=== PATIENT | female | born 1970 | race Caucasian/White ===

== ENCOUNTER → 2018-01-17 | Day surgery (SDC) | payer OTHER ==
[~2018-01-17] MED LIST: BUPIVACAINE HCL 0.5% INJ 30 ML VIAL INJ ONE; CEFAZOLIN SOD 2 GM/D5W 50ML 50 ML IV ONE; DEXAMETHASONE SOD PHOS INJ 4 MG/ML VIAL ONE; FENTANYL CITRATE/PF 100MCG/2 ML INJ ONE; LEVOTHYROXINE112 MCG PO; LIDOCAINE HCL 2% LOCAL INJ 5 ML SDV VIAL INJ ONE; METFORMIN HCL500 M2 PO; MIDAZOLAM HCL 2 MG/2 ML VIAL ONE; NEOSTIGMINE 1 MG/ML 10ML VIAL ONE; ONDANSETRON HCL INJ 2 MG/ML VIAL ONE; PROPOFOL IV EMULSION 10 MG/ML 20 ML VIAL ONE; SEVOFLURANE INHAL SOLN 250 ML PEN BTL ONE; [UNRECOGNIZED DRUG - OTHER] PO
--- NOTE | 2018-01-17 15:23 | Operative Report ---
DATE OF PROCEDURE: January 17, 2018 PREOPERATIVE DIAGNOSES 1. Chronic plantar fasciitis. 2. Bone spur, right foot. 3. Bursitis with chronic edema, right foot. POSTOPERATIVE DIAGNOSES 1. Chronic plantar fasciitis. 2. Bone spur, right foot. 3. Bursitis with chronic edema, right foot. PROCEDURES 1. Endoscopic plantar fasciotomy, right foot. 2. Removal of bone spur, right calcaneus. 3. Use of human allograft. 4. Application of posterior splint. PATHOLOGY: None. ANESTHESIA: General anesthetic. HEMOSTASIS: Pneumatic thigh tourniquet. ESTIMATED BLOOD LOSS: Less than 10 mL. MATERIALS: A 2 x 3 AmnioFix patch, expires 10/27/2021, . PROCEDURE IN DETAIL: Under mild sedation, the patient was brought to the operating room and placed on the operating table in the supine position. Following IV sedation, anesthesia was obtained with a general anesthetic. At this point, the foot was scrubbed, prepped and draped in the usual aseptic manner. The pneumatic thigh tourniquet was inflated to 350 mmHg, and the leg was lowered to the table. Attention was then directed to the medial aspect of the right foot, where a linear incision was made overlying the plantar fascia. The incision was deepened via sharp and blunt dissection, taking care to retract or cauterize neurovascular structures as necessary. It was deepened down to the level of the plantar fascia. A fascial isolator was then used. A trocar and cannula were then inserted. The trocar was removed. The camera was inserted. Medial, central and lateral bands were visualized. Utilizing a fascial blade, medial and central bands were transected through and through, leaving the lateral band intact. All instruments were removed. The area was then flushed with copious amounts of normal sterile saline solution. Excision of plantar calcaneal spur: Attention was then directed to the plantar aspect of the foot. With the use of intraop fluoroscopy, the bone spur was then isolated. Utilizing a combination of bone rongeurs and a hand rasp, the spur was removed. The area was then made smooth. The area was then flushed with copious amount of normal sterile saline solution. At this point, human allograft was then inserted into the area in order to promote adhesions, to promote healing and to prevent scar tissue. The area was then closed, closing the deepest layer with 4-0 nylon. A clean dressing was applied consisting of Adaptic, 4 x 4's, Kerlix and Webril. A posterior splint was applied and was secured using an Harshal bandage. The tourniquet was deflated. There was noted to be a hyperemic response to all digits. The patient tolerated the procedure and anesthesia well without complications. She was transported to the recovery room with vital signs stable and vascular status intact to both feet. The patient will be discharged home when she meets criteria. She was given instructions to be nonweightbearing, to ice and elevate the foot while at rest, to follow up with me in the office, and to call the office if any questions, concerns or any problems arise. Job#: [id number]
== END | disposition home or self-care (01) ==
LOC: OR 09:24
PROVIDERS: ATTEND Podiatrist Foot & Ankle Surgery
DX: M72.2 Plantar fascial fibromatosis (principal); M77.31 Calcaneal spur, right foot; M77.51 Other enthesopathy of right foot and ankle; R60.9 Edema, unspecified; E11.9 Type 2 diabetes mellitus without complications; F17.210 Nicotine dependence, cigarettes, uncomplicated; Z88.2 Allergy status to sulfonamides; Z01.810 Encounter for preprocedural cardiovascular examination; Z79.84 Long term (current) use of oral hypoglycemic drugs
CPT/HCPCS: 28104; 29893; 36415; 82948; 93005; C1762; J1100; J2001; J2250; J2405; 76000; J2710

== ENCOUNTER 2019-01-28 06:58 | Emergency (ER) | payer OTHER ==
[~2019-01-28] VITALS: Ht 152.4 cm; Wt 104.3 kg
[~2019-01-28 06:58] MED LIST changes: -BUPIVACAINE HCL 0.5% INJ 30 ML VIAL INJ ONE; -CEFAZOLIN SOD 2 GM/D5W 50ML 50 ML IV ONE; -DEXAMETHASONE SOD PHOS INJ 4 MG/ML VIAL ONE; -FENTANYL CITRATE/PF 100MCG/2 ML INJ ONE; -LIDOCAINE HCL 2% LOCAL INJ 5 ML SDV VIAL INJ ONE; -MIDAZOLAM HCL 2 MG/2 ML VIAL ONE; -NEOSTIGMINE 1 MG/ML 10ML VIAL ONE; -ONDANSETRON HCL INJ 2 MG/ML VIAL ONE; -PROPOFOL IV EMULSION 10 MG/ML 20 ML VIAL ONE; -SEVOFLURANE INHAL SOLN 250 ML PEN BTL ONE
--- NOTE | 2019-01-28 07:29 | NUR ---
NON SMOKER NON ETOH NO ILLEG DRUGS
[2019-01-28] MEDS ORDERED: SODIUM CHLORIDE 0.9% 1000ML 1,000 ML IV STA (07:30)
[2019-01-28] MEDS ORDERED: ONDANSETRON HCL INJ 2MG/ML 2ML 2 MG/ML VIAL IV STA (07:30)
[2019-01-28] MEDS ORDERED: KETOROLAC TROMETHAMINE 30 MG/ML VIAL IV STA (07:30)
[2019-01-28] MEDS: MORPHINE SULFATE 2 MG/ML SYR 1ML IV STA ×2 (07:58→09:51)
--- NOTE | 2019-01-28 08:00 | NUR ---
D/T VOID. GIVEN URINE CUP IN TRIAGE AND UNABLE TO VOID AT THIS TIME. PT AWARE OF NEED FOR UA
[2019-01-28 08:23] LABS: BASOPHILS % 0.3 % (0.0-1.0); EOSINOPHILS % 0.1 % (0.0-6.0); HEMOGLOBIN 13.7 g/dL (12.0-16.0); LYMPHOCYTES # (AUTO) 0.7 (1.0-3.2); LYMPHOCYTES % 7.5 % (18.0-39.1); MEAN CORPUSCULAR HEMOGLOBIN 29.7 pg (28-32); MEAN CORPUSCULAR HGB CONC 33.4 g/dL (31-35); MEAN CORPUSCULAR VOLUME 88.9 fL (81-99); MONOCYTES # (AUTO) 0.2 (0.2-0.8); MONOCYTES % 2.6 % (4.4-11.3); NEUTROPHILS # (AUTO) 8.3 (2.1-6.9); NEUTROPHILS % 89.1 % (38.7-80.0); PLATELET COUNT 218 x10e3/uL (140-360); RED BLOOD COUNT 4.61 x10e6/uL (3.6-5.1); RED CELL DISTRIBUTION WIDTH 12.6 % (11.7-14.4)
[2019-01-28 09:02] LABS: INR 0.92; PARTIAL THROMBOPLASTIN TIME 29.2 seconds (23.8-35.5); PROTHROMBIN TIME 12.9 seconds (11.9-14.5)
--- NOTE | 2019-01-28 09:06 | Diagnostic Imaging Report ---
EXAM: CT of the abdomen and pelvis WITHOUT contrast HISTORY: Stone Protcl, L FLANK PAIN RAD TO LLQ, H/O KID ST, left lower quadrant pain, nausea COMPARISON: None available. TECHNIQUE: The abdomen and pelvis were scanned utilizing a multidetector helical scanner. Coronal and sagittal reformats are available. PROTOCOL: Renal colic IV CONTRAST: None, which limits sensitivity and specificity of evaluation of the soft tissues and vascular structures. ORAL CONTRAST: None, which limits sensitivity and specificity of evaluation of the bowel. RADIATION DOSE: Total DLP: 864.39 mGy*cm Estimated effective dose: (DLP x 0.015 x size factor) Dose modulation, iterative reconstruction, and/or weight based adjustment of the mA/kV was utilized to reduce the radiation dose to as low as reasonably achievable. COMPLICATIONS: None FINDINGS: LOWER THORAX: Unremarkable. HEPATOBILIARY: No definite focal hepatic lesions. No biliary ductal dilatation. The gallbladder is unremarkable. SPLEEN: No splenomegaly. PANCREAS: No focal masses or ductal dilatation. ADRENALS: A 2 cm left adrenal nodule measuring 5 Hounsfield units. KIDNEYS/URETERS: A 2 mm calcific density in the region of the left ureterovesicular junction (UVJ). Moderate left hydronephrosis. Mild left perinephric fat stranding. The right kidney appears normal. PELVIC ORGANS/BLADDER: The urinary bladder is partially decompressed. PERITONEUM / RETROPERITONEUM: No free air or fluid. GI TRACT: On limited evaluation of the gastrointestinal tract, no dilation or wall thickening identified. The appendix appears normal. Colonic diverticulosis, most notably moderate of the sigmoid colon. LYMPH NODES: No pathologically enlarged lymph nodes. VESSELS: Diffuse scattered atherosclerotic vascular calcifications. BONES: No aggressive osseous lesion or acute fracture. SOFT TISSUES: Unremarkable. IMPRESSION: 1. A 2 mm left ureterovesicular junction stone resulting in moderate left hydronephrosis. 2. Colonic diverticulosis. 3. Incidental left lipid rich adrenal adenoma. Signed by: Neeta Nicole.O., M.M.M. on 01/28/2019 9:03 AM
[2019-01-28 09:12] LABS: ALANINE AMINOTRANSFERASE 21 IU/L (0-55); ALBUMIN/GLOBULIN RATIO 1.3 (0.8-2.0); ALKALINE PHOSPHATASE 75 IU/L (40-150); BLOOD UREA NITROGEN 19 mg/dL (7-26); BUN/CREATININE RATIO 19 (6-25); CALCIUM 9.7 mg/dL (8.4-10.2); CARBON DIOXIDE 24 mmol/L (22-29); CHLORIDE 105 mmol/L (98-107); CREATINE KINASE 40 IU/L (29-168); CREATININE, SERUM 1.01 mg/dL (0.57-1.11); EST GLOMERULAR FILTRATION RATE 58 ML/MIN (60-); GLUCOSE 132 mg/dL (74-118); MAGNESIUM 1.9 MG/DL (1.3-2.1); SODIUM 138 mmol/L (136-145)
[2019-01-28 09:43] LABS: CLARITY,URINE SL CLOUDY (CLEAR); COLOR,URINE YELLOW (YELLOW); LEUKOCYTE ESTERASE ,URINE NEGATIVE (NEGATIVE); NITRITE,URINE NEGATIVE (NEGATIVE)
[2019-01-28 09:44] LABS: KETONES,URINE NEGATIVE (NEGATIVE); PROTEIN,URINE DIPSTICK NEGATIVE (NEGATIVE); URINE UROBILINOGEN 0.2 mg/dL (0.2 - 1)
[2019-01-28 09:49] LABS: BACTERIA,URINE FEW /HPF; BILIRUBIN,URINE NEGATIVE (NEGATIVE); CALCIUM OXALATE CRYSTALS,UR FEW (FEW); EPITHELIAL CELLS,URINE FEW /LPF; RBC,URINE >50 /HPF (0-5); WBC,URINE (MAN) 0-5 /HPF (0-5)
== END 2019-01-28 11:07 | disposition home or self-care (01) ==
LOC: ER 06:58
DX: R10.32 Left lower quadrant pain (principal); N20.1 Calculus of ureter; E88.81 Metabolic syndrome and other insulin resistance; E03.9 Hypothyroidism, unspecified
CPT/HCPCS: 36415; 74176; 80053; 81001; 82550; 82553; 83735; 84484; 85025; 85610; 85730; 87086; 99284; J1885; J2405; J7030

== ENCOUNTER → 2021-01-23 | Outpatient (CLI) | payer BC | LOC: MRI 12:18 | PROVIDERS: ATTEND Specialist | DX: S89.92XA Unspecified injury of left lower leg, initial encounter (principal) ==